=== PATIENT | male | born 1960 ===

== ENCOUNTER 2022-05-20 08:50 | Outpatient (REF) | payer MEDICAID, SELFPAY ==
--- NOTE | 2022-05-20 16:04 | MHC.AU.ANR ---
Adult Audiological Evaluation Date of Visit: 05/20/22 Reason for Appointment: Patient has been diagnosed with profound sensorineural hearing loss in his right ear, with 0% word discrimination. He reports that it is currently uncertain what caused the hearing loss. 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 He had an MRI and will be following up soon to go over the results. He is expecting that they will do surgery to remove the mass. Patient is interested in discussing amplification options. His hearing was last tested on 01/28/22. It was re-checked today to determine if there have been any changes and to ensure the patient is within the 6-month window required by insurance when he ultimately receives the hearing aids. Has hearing been tested previously?: Yes Previous Hearing Test Results: On 01/28/2022 at [facility]: Right- Profound sensorineural hearing loss, Left- Normal/borderline sloping to severe sensorineural hearing loss Otoscopy: Right Ear: Was occluded w/cerumen- cerumen removal performed prior to testing Left Ear: Unremarkable Tympanometry: Tympanometry performed due to: To assess integrity of the middle ear system Right Ear: Hypercompliant Middle Ear System (Type Ad) Left Ear: Normal Middle Ear System (Type A) Hearing Evaluation: Transducer(s) Used: Insert Earphones Method: Conventional Audiometry Stimuli Used: Pure Tones Right Ear: Description of Hearing: Normal/borderline sloping to severe sensorineural hearing loss Left Ear: Description of Hearing: Profound sensorineural hearing loss Recommendations: See Hearing Aid Evaluation report for more information. Audiological re-evaluation in one year, or at ENT's discretion. Diagnosis: Primary Diagnosis: H90.A21 SNHL, Unilateral Right Ear, W/Restricted Contralateral Hearing Signature: Provider: Luz Elena Whiting, [facility]
--- NOTE | 2022-05-20 16:05 | MHC.AU.HAS ---
Hearing Aid Evaluation Date of Visit: 05/20/22 Historical Information: Description of Hearing: Right: Profound sensorineural hearing loss Left: Normal/borderline to severe sensorineural hearing loss Summary: Patient is being followed by [facility]. 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 Patient reports it is unsure at this time if the mass is what damaged the hearing in the right ear, or if it is unrelated. He had an MRI and will be following up with ENT soon. A surgery will likely be scheduled to remove the mass. Patient inquired if the hearing in the right ear will stay the way it is, and if there's anything that can be done to fix it. Discussed that at this time there is no medical way to reverse sensorineural hearing loss, though it is a growing area of research. Discussed that a cochlear implant could potentially be an option, but this depends significantly on the cause/source of the hearing loss. If it was caused by damage to the auditory nerve, a cochlear implant would not help. If the hearing loss is unrelated to the parotid gland mass and originated from the cochlea, then a cochlear implant could potentially be an option. If he was interested, he would need to discuss this further with his ENT. Hearing instrument options were discussed. Patient received medical clearance for a BiCROS system, since there is no measurable word discrimination in the right ear. Patient has been experiencing numbness in his left arm, and therefore his use of the left arm is limited. At this time, there are no hearing aid manufacturers making custom CROS systems. We will do a rechargeable MIN system with cShells, which may be easier for the patient to insert independently. Hearing Aid Prescription: Based on the individual?s shared listening needs, communication environments, dexterity, desire for connectivity, and personal preferences, the following prescription for amplification has been made: Right ear: Interactive Web Developer: Phonak Model: CROS P-R Battery Size: Rechargeable Color: Black Manager Document: 2 Type of Mold: CROS mold Left ear: Interactive Web Developer: Phonak Model: Audeo P70-R Battery Size: Rechargeable Color: Black Manager Document: 2M Type of Mold: cShell Action Taken/Action Needed: Earmold Impressions Taken Hearing Instrument Fitting to be scheduled when materials arrive Primary Diagnosis: H90.A21 SNHL, Unilateral Right Ear, W/Restricted Contralateral Hearing Signature: Provider: Luz Elena Whiting, [facility]
== END 2022-05-20 08:51 | disposition home or self-care (01) ==
LOC: HO.SH 08:50
PROVIDERS: Visit Provider Nurse Practitioner Family
DX: H90.A21 Sensorineural hearing loss, unilateral, right ear, with restricted hearing on the contralateral side (principal)
CPT/HCPCS: 92552; 92567; 92591; V5010; V5275

== ENCOUNTER 2022-06-18 12:53 | Outpatient (REF) | payer MEDICAID, SELFPAY ==
--- NOTE | 2022-06-18 13:25 | MHC.AU.NMH ---
Hearing Aid Delivery Receipt Date of Fittin06/18/22 End of Adjustment Period: 07/19/2022 Fuel System Maintenance Worker: Melissa Whiting Third Democrat Payor?[facility]? Right Ear: Left Ear: Make, Model, Serial Number and Color: Phonak CROS P-R [id number] (w cros tip tube 2 sn [id number]) Make, Model, Serial Number and Color: Phonak Audeo P70-R [id number] (w/CShell [id number] Tube size 2M remake 08/30/22) Rent Collector/Slim Tube: 2 Rent Collector/Slim Tube: 2M Earmold/Dome/CShell/SlimTip: CROS mold Earmold/Dome/CShell/SlimTip: cShell Type of Wax Guard: Type of Wax Guard: Battery Size: Rechargeable Battery Size: Rechargeable Senior Business Process Analyst Repair Warranty: 08/29/25 Senior Business Process Analyst Repair Warranty: 08/29/2025 Senior Business Process Analyst Loss and Damage Warranty: 08/29/25 Senior Business Process Analyst Loss and Damage Warranty: 08/29/2025 [facility] Service Agreement ends one year from date of fitting on? 08/06/2023 [facility] Service Agreement ends one year from date of fitting on08/06/2023 Accessories/Assistive Technology: Following the expiration of [facility] service agreement, charges for items and services listed above are billed at the usual and customary rate. *If coverage by third constitution party payor exists, medically necessary modifications, repairs, etc. will be billed to said third constitution party payor. If there is no third constitution party payor eligibility beyond the service agreement or wire annealer warranty periods, items will be billed per usual and customary rates and payment is expected at the time of service. Hearing aids that are lost or damaged beyond repair cannot be returned for credit, and the speech pathology assistant is liable for the full purchase pacheco. My signature below acknowledges that I have read and understand this hearing aid contract and have received the goods and services out lined above. ?Date? Home Address: ? PATIENT STICKER ? This hearing aid will not restore normal hearing nor will it prevent further hearing loss. The sale of a hearing aid is restricted to those individuals who have obtained a medical evaluation from a licensed physician or valve and regulator repairer. A fully informed adult whose christian or personal beliefs preclude consultation with a physician may waive the requirement of a medical evaluation. The exercise of such a waiver is not in your best health interest and its use is strongly discouraged. It is also required that a person under the age of eighteen years obtain an evaluation by an cement finisher in addition to the medical evaluation before a hearing aid can be sold to such person. Ivonne Rosales,Title XV,Chapter 93:74
--- NOTE | 2022-06-19 11:41 | MHC.AU.HFA ---
Hearing Instrument Fitting- Adult- Binaural Date of Visit: 06/18/22 Hearing Instruments Dispensed: Right Ear: Trouble Clerk: Phonak CROS P-R #[id number] Repair Warranty: 08/29/25 Loss and Damage Warranty: 08/29/25 Service Plan: 06/18/2023 Battery Size: Rechargeable Color: Black Electrostatic Powder Coating Technician: 2 Type of Mold: CROS mold #[id number] Left Ear: Trouble Clerk: Phonak Audeo P70-R #[id number] Repair Warranty: 08/29/2025 Loss and Damage Warranty: 08/29/2025 Service Plan: 08/06/2023 Battery Size: Rechargeable Color: Black Electrostatic Powder Coating Technician: 2M Type of Mold: CShell #[id number] Tube size 2M, remake warranty 08/30/22 Type of Wax Guard: CeruStop Summary of Fitting: Feedback plant quality manager run. Target gain set to 100%. Verifit performed and levels adjusted to better reach targets. Patient was pleased with the sound of the instruments. He was previously concerned about whether or not he could put the hearing aids on independently due to the numbness in his left arm; however, he was able to put the hearing aids on with ease. Hearing aids were paired to his phone. Hearing aid care and maintenance were discussed and practiced. Recommendations: Hearing aid follow-up as needed. Diagnosis Code(s): Primary Diagnosis: H90.3 Bilateral Sensorineural Hearing Loss Signature:Provider: Melissa Whiting, CCC-A
== END 2022-06-18 12:54 | disposition home or self-care (01) ==
LOC: HO.HAP 12:53
PROVIDERS: Visit Provider Internal Medicine
DX: Z46.1 Encounter for fitting and adjustment of hearing aid (principal); H90.3 Sensorineural hearing loss, bilateral
CPT/HCPCS: 92621; V5011; V5020; V5221; V5240; V5264